=== PATIENT | female | born 1975 | race Caucasian/White ===

== ENCOUNTER 2016-06-24 19:46 | Emergency (ER) | payer MEDICAID ==
[2016-06-24] MEDS ORDERED: NORMAL SALINE 1000 ML 1,000 ML IV PRN (20:24)
--- NOTE | 2016-06-24 20:27 | ER Document Report ---
ED General - General Chief Complaint: Overdose Stated Complaint: POSSIBLE OVERDOSE Time seen by provider: 20:24 Mode of Arrival: Medic Information source: Patient TRAVEL OUTSIDE OF THE [place] IN LAST 30 DAYS: No - HPI Patient complains to provider of: altered mental status, difficult to arouse, possible overdose Onset: Just prior to arrival Onset/Duration: Sudden Quality of pain: No pain Associated symptoms: Nausea, Vomiting Exacerbated by: Denies Relieved by: Denies Similar symptoms previously: No Recently seen / treated by doctor: No Notes: Patient is a 41-year-old female with a history of anxiety, ADHD and hypertension , brought to the emergency room by EMS after she became unresponsive and was breathing at a rate of 4 breaths per minute, friends nearby suspected patient may have overdosed on unknown meds, and patient received Narcan in route which seemed to reverse her symptoms, patient reports that she took her normal medications this evening which include Klonopin, clonidine, Ambien, Adderall, Abilify, she denies taking any other medications or street drugs but does admit to drinking some alcohol throughout the day today, patient reports she has been having some nausea and vomiting over the past few days, denies abdominal pain, denies pain anywhere, denies history of similar symptoms previously, family member at bedside reports that patient was difficult to arouse for approximately 5 minutes but no seizure activity was observed at the time, patient denies any symptoms at time of initial evaluation, reports feeling 100% back to normal - Related Data Allergies/Adverse Reactions: lorazepam [From Ativan] Allergy (Verified 02/05/15 20:40) Past Medical History - General Information source: Patient - Social History Smoking Status: Current Every Day Smoker Frequency of alcohol use: Social Family History: Reviewed & Not Pertinent - Past Medical History Cardiac Medical History: Reports: Hx Hypertension Psychiatric Medical History: Reports: Hx Depression Past Surgical History: Reports: Hx Section - Immunizations Hx Diphtheria, Pertussis, Tetanus Vaccination: Yes - > 5 years Review of Systems - Review of Systems Constitutional: No symptoms reported EENT: No symptoms reported Cardiovascular: No symptoms reported Respiratory: No symptoms reported Gastrointestinal: Nausea, Vomiting Genitourinary: No symptoms reported Female Genitourinary: No symptoms reported Musculoskeletal: No symptoms reported Skin: No symptoms reported Hematologic/Lymphatic: No symptoms reported Neurological/Psychological: No symptoms reported -: Yes All other systems reviewed and negative Physical Exam - Vital signs Interpretation: Normal - General General appearance: Appears well, Alert - HEENT Head: Normocephalic, Atraumatic Eyes: Normal Pupils: PERRL - Respiratory Respiratory status: No respiratory distress Chest status: Nontender Breath sounds: Normal Chest palpation: Normal - Cardiovascular Rhythm: Regular Heart sounds: Normal auscultation Murmur: No - Abdominal Inspection: Normal Distension: No distension Bowel sounds: Normal Tenderness: Nontender Organomegaly: No organomegaly - Back Back: Normal, Nontender - Extremities General upper extremity: Normal inspection, Nontender, Normal color, Normal ROM , Normal temperature General lower extremity: Normal inspection, Nontender, Normal color, Normal ROM , Normal temperature, Normal weight bearing. No: Shanna's sign - Neurological Neuro grossly intact: Yes Cognition: Normal Orientation: AAOx4 [place] Coma Scale Eye Opening: Spontaneous [place] Coma Scale Verbal: Oriented [place] Coma Scale Motor: Obeys Commands [place] Coma Scale Total: 15 Speech: Normal Motor strength normal: LUE, RUE, LLE, RLE Sensory: Normal - Psychological Associated symptoms: Normal affect, Normal mood - Skin Skin Temperature: Warm Skin Moisture: Dry Skin Color: Normal Course - Re-evaluation Re-evalutation: 06/24/16 21:03 Notified by nursing staff that patient may have a low back from the emergency room as she cannot be found, prior to that she was ambulating with a steady gait , she was awake alert and oriented, and had no complaints 06/24/16 21:12 Nursing staff reviewed security tapes showing that patient did in fact eloped from the emergency room, unfortunately there is no evidence of her removing her IV catheter prior to doing this, therefore nursing staff attempted to call patient but was transferred right voicemail, will notify law enforcement to go to patient's house to ensure that she does not still have IV in place or otherwise bring her back to the emergency room Discharge - Discharge Clinical Impression: Nausea and vomiting Qualifiers: Vomiting type: unspecified Vomiting Intractability: non-intractable Qualified Code(s): R11.2 - Nausea with vomiting, unspecified Disposition: ELOPED
--- NOTE | 2016-06-25 09:25 | EKG REPORT ---
SEVERITY:- OTHERWISE NORMAL ECG - SINUS TACHYCARDIA : Confirmed by: Fabiola Randle MD 25-Jun-2016 09:24:19
== END 2016-06-24 20:25 | disposition left against medical advice (07) ==
LOC: ER 19:46
DX: R11.2 Nausea with vomiting, unspecified (principal); R41.82 Altered mental status, unspecified; F41.9 Anxiety disorder, unspecified; F90.9 Attention-deficit hyperactivity disorder, unspecified type; I10 Essential (primary) hypertension; Z79.899 Other long term (current) drug therapy; F17.210 Nicotine dependence, cigarettes, uncomplicated
CPT/HCPCS: 93005; 93010; 99281

== ENCOUNTER 2016-09-02 12:33 | Emergency (ER) | payer MEDICAID ==
--- NOTE | 2016-09-02 12:48 | ER Document Report ---
ED Medical Screen (RME) - General Stated Complaint: MEDICAL CLEARANCE/WITHDRAWAL Notes: Patient here for lab work for medical clearance so that she can be sent to [facility]. Member of [facility] (Nicole [phone]) is present with patient. Patient is complaining of leg cramps and feeling sweaty. Patient admits to alcohol abuse, takes benzos, opiates, and methadone. I have greeted and performed a rapid initial assessment of this patient. A comprehensive ED assessment and evaluation of the patient, analysis of test results and completion of the medical decision making process will be conducted by additional ED providers. TRAVEL OUTSIDE OF THE [place] IN LAST 30 DAYS: No - Related Data Allergies/Adverse Reactions: lorazepam [From Ativan] Allergy (Verified 09/02/16 12:46) Past Medical History - Past Medical History Cardiac Medical History: Reports: Hx Hypertension Psychiatric Medical History: Reports: Hx Depression Past Surgical History: Reports: Hx Section - Immunizations Hx Diphtheria, Pertussis, Tetanus Vaccination: Yes - > 5 years Physical Exam - Cardiovascular Rhythm: Regular Heart sounds: Normal auscultation
[2016-09-02 13:37] LABS: HEMATOCRIT 41.3 % (36.0-47.0); HEMOGLOBIN 14.1 g/dL (12.0-15.5); MEAN CORPUSCULAR HEMOGLOBIN 27.5 pg (27.0-33.4); MEAN CORPUSCULAR HGB CONC 34.1 g/dL (32.0-36.0); MEAN CORPUSCULAR VOLUME 81 fl (80-97); RED BLOOD COUNT 5.13 10^6/uL (3.72-5.28); RED CELL DISTRIBUTION WIDTH 13.7 % (11.5-14.0); WHITE BLOOD COUNT 11.9 10^3/uL (4.0-10.5)
[2016-09-02 13:56] LABS: ALANINE AMINOTRANSFERASE 100 U/L (9-52); ALBUMIN 4.3 g/dL (3.5-5.0); ALCOHOL < 10 mg/dL (NONE DETECTED); ALKALINE PHOSPHATASE 87 U/L (38-126); ANION GAP 13 (5-19); ASPARTATE AMINO TRANSFERASE 53 U/L (14-36); BILIRUBIN,DIRECT 0.2 mg/dL (0.0-0.4); BILIRUBIN,TOTAL 0.4 mg/dL (0.2-1.3); BLOOD UREA NITROGEN 19 mg/dL (7-20); CALCIUM 10.1 mg/dL (8.4-10.2); CARBON DIOXIDE 23 mmol/L (22-30); CHLORIDE 107 mmol/L (98-107); CREATININE RESULT 0.87 mg/dL (0.52-1.25); GLUCOSE 106 mg/dL (75-110); POTASSIUM 4.5 mmol/L (3.6-5.0); SODIUM 143.1 mmol/L (137-145); TOTAL PROTEIN 7.5 g/dL (6.3-8.2)
[2016-09-02 14:00] LABS: APPEARANCE,URINE SLIGHTLY-CLOUDY; BILIRUBIN,URINE NEGATIVE (NEGATIVE); GLUCOSE, URINE NEGATIVE (NEGATIVE); KETONES,URINE NEGATIVE (NEGATIVE); LEUKOCYTE ESTERASE,URINE NEGATIVE (NEGATIVE); NITRITE,URINE NEGATIVE (NEGATIVE); PROTEIN,URINE NEGATIVE (NEGATIVE); URINE SPECIFIC GRAVITY 1.029; UROBILINOGEN,URINE NEGATIVE mg/dL (<2.0)
[2016-09-02 14:11] LABS: BASOPHILS % (MANUAL) 0 % (0-2); EOSINOPHILS % (MANUAL) 1 % (0-6); LYMPHOCYTES % (MANUAL) 24 % (13-45); TOTAL CELLS COUNTED 100
[2016-09-02 14:12] LABS: PLATELET CLUMPS PRESENT; RBC MORPHOLOGY COMMENT NORMO-CYTIC/CHROMIC; TOXIC GRANULATION SLIGHT
[2016-09-02 14:13] LABS: URINE BARBITURATES SCREEN NEGATIVE; URINE METHADONE SCREEN UNCONFIRMED POSITIVE; URINE OPIATES LOW UNCONFIRMED POSITIVE; URINE PHENCYCLIDINE SCREEN NEGATIVE
--- NOTE | 2016-09-02 16:19 | ER Document Report ---
ED Substance Abuse / Acc. OD - General Chief Complaint: Medical Clearance Stated Complaint: MEDICAL CLEARANCE/WITHDRAWAL Mode of Arrival: Ambulatory Information source: Patient Notes: Patient presents with a staff member from [facility] requesting medical clearance so that she can seek placement for detox at [facility]. Patient states that she is wanting to detox from multiple substances that she has been using. Patient states that primarily she abuses Adderall, but will occasionally take Percocet, methadone, shoot up heroin, shoot up crystal meth, and only take Klonopin whenever she doesn't have the other drugs. Patient does state that she occasionally drinks but not daily. Patient reports that her last use of Klonopin was 2 days ago, her last Percocet intake was 2 days ago she typically will try to take 5 tablets a day. Patient reports last taking methadone 3 days ago. Patient last used heroin 1 week ago. Last use of crystal meth was 3 days ago. Patient denies any suicidal or homicidal ideation. Patient presently denies any complaints except for an occasional cramping in her legs. Patient denies any chest pain, shortness of breath, abdominal pain, nausea, vomiting or diarrhea. TRAVEL OUTSIDE OF THE [place] IN LAST 30 DAYS: No - HPI Patient complains to provider of: Substance abuse Quality of pain: Cramping Pain Level: 0 Associated Symptoms: denies: Fever/chills/sweaty, Chest pain/discomfort, Hurts to breathe, Short of breath, Nausea/vomiting, Diarrhea, Bloody stool, Trouble walking, Lightheaded, Rapid pulse Similar symptoms previously: Yes Recently seen / treated by doctor: No - Related Data Allergies/Adverse Reactions: lorazepam [From Ativan] Allergy (Verified 09/02/16 12:46) Past Medical History - General Information source: Patient - Social History Smoking Status: Current Every Day Smoker Frequency of alcohol use: Social Drug Abuse: Prescription drugs Family History: Reviewed & Not Pertinent Patient has suicidal ideation: No Patient has homicidal ideation: No - Past Medical History Cardiac Medical History: Reports: Hx Hypertension Renal/ Medical History: Denies: Hx Peritoneal Dialysis Psychiatric Medical History: Reports: Hx Anxiety, Hx Attention Deficit Hyperactivity Disorder, Hx Depression Past Surgical History: Reports: Hx Section - Immunizations Hx Diphtheria, Pertussis, Tetanus Vaccination: Yes - > 5 years Review of Systems - Review of Systems Constitutional: No symptoms reported. denies: Fever, Recent illness EENT: No symptoms reported Cardiovascular: No symptoms reported. denies: Chest pain, Palpitations, Dizziness Respiratory: No symptoms reported. denies: Cough, Short of breath Gastrointestinal: No symptoms reported. denies: Abdominal pain, Diarrhea, Nausea, Vomiting Genitourinary: No symptoms reported. denies: Dysuria Female Genitourinary: No symptoms reported Musculoskeletal: Other - Occasional leg cramps. denies: Back pain, Joint pain Skin: No symptoms reported. denies: Rash Hematologic/Lymphatic: No symptoms reported Neurological/Psychological: No symptoms reported. denies: Confusion, Dementia, Homicidal ideation, Lost consciousness, Headaches, Suicidal ideation Physical Exam - Vital signs Vitals: Temp Pulse Resp BP Pulse Ox 98.1 F 94 18 143/96 H 98 09/02/16 12:43 09/02/16 12:43 09/02/16 12:43 09/02/16 12:43 09/02/16 12:43 - General General appearance: Appears well, Alert In distress: None - HEENT Head: Normocephalic, Atraumatic Eyes: Normal Conjunctiva: Normal Eyelashes: Normal Pupils: PERRL Nasal: Normal Mouth/Lips: Normal Mucous membranes: Normal Neck: Normal, Supple. No: Lymphadenopathy, Meningismus - Respiratory Respiratory status: No respiratory distress Chest status: Nontender Breath sounds: Normal. No: Rales, Rhonchi, Stridor, Wheezing Chest palpation: Normal - Cardiovascular Rhythm: Regular Heart sounds: S1 appreciated, S2 appreciated Murmur: No - Abdominal Inspection: Normal Tenderness: Nontender - Back Back: Normal, Nontender. No: CVA tenderness - Extremities General upper extremity: Normal inspection, Normal ROM General lower extremity: Normal inspection, Normal ROM - Neurological Neuro grossly intact: Yes Cognition: Normal Orientation: AAOx4 [place] Coma Scale Eye Opening: Spontaneous [place] Coma Scale Verbal: Oriented [place] Coma Scale Motor: Obeys Commands [place] Coma Scale Total: 15 - Psychological Associated symptoms: Normal affect, Normal mood - Skin Skin Temperature: Warm Skin Moisture: Dry Skin Color: Normal Course - Re-evaluation Re-evalutation: 09/02/16 16:[address] Fontaine regarding patient presentation and discharge plan of care 09/02/16 16:24 Patient medically clear after review of patient's diagnostic tests, vital signs as well as physical exam findings. Patient with an [facility] contracts representative and plans to follow up directly for placement at [facility] for detox 09/02/16 At discharge patient's [facility] contracts representative became visibly agitated insisting that patient has an abnormal EKG and that we must do something to fix her EKG so that she can find placement. A staff and daughter states that patient needs to be cleared and had a confirmed that she is not having a stroke or a heart attack at this time. Patient does not presently complain of any symptoms except for occasional leg cramps. Patient without any electrolyte abnormality or correctable cause of her leg cramps.. A staff member was argumentative insisting that patient will need to be admitted so that she can detox from her multiple substances that she is abusing. Patient advised that she does not have any lethal arrhythmia on EKG nor does she have any abnormal rhythm that warrants or could be corrected with any medical treatment at this time. Patient advised that she does not have signs concerning for cardiac ischemia or infarction. Patient advised that she is stable to seek out detox, but this facility does not provide inpatient detox. [facility] contracts representative increasingly becoming argumentative insisting that patient is not medically clear because of her abnormal EKG finding. Patient advised that she may never have a completely normal EKG rhythm, and that the abnormality on her EKG today, may in fact be patient's new baseline EKG rhythm. Dr. Fontaine advised of representatives concerns, agrees with plan to discharge patient. - Vital Signs Vital signs: Temp Pulse Resp BP Pulse Ox 98.2 F 90 18 146/95 H 100 09/02/16 16:54 09/02/16 16:54 09/02/16 12:43 09/02/16 16:54 09/02/16 16:54 - Laboratory Result Diagrams: 09/02/16 13:05 09/02/16 13:05 Laboratory results interpreted by me: 09/02/16 09/02/16 13:05 13:05 WBC 11.9 H Monocytes % (Manual) 1 L AST 53 H ALT 100 H Salicylates < 1.0 L Acetaminophen < 10 L 09/02/16 16:18 Labs- Entire Visit 09/02/16 09/02/16 09/02/16 13:05 13:05 13:05 WBC 11.9 H RBC 5.13 Hgb 14.1 Hct 41.3 MCV 81 MCH 27.5 MCHC 34.1 RDW 13.7 Plt Count 214 Total Counted 100 Seg Neutrophils % Not Reportable Seg Neuts % (Manual) 67 Lymphocytes % Not Reportable Lymphocytes % (Manual) 24 Atypical Lymphs % 7 Monocytes % Not Reportable Monocytes % (Manual) 1 L Eosinophils % Not Reportable Eosinophils % (Manual) 1 Basophils % Not Reportable Basophils % (Manual) 0 Absolute Neutrophils Not Reportable Abs Neuts (Manual) 8.0 Absolute Lymphocytes Not Reportable Abs Lymphs (Manual) 3.7 Absolute Monocytes Not Reportable Abs Monocytes (Manual) 0.1 Absolute Eosinophils Not Reportable Absolute Eos (Manual) 0.1 Absolute Basophils Not Reportable Abs Basophils (Manual) 0.0 Toxic Granulation SLIGHT Clumped Platelets PRESENT Platelet Comment Not Reportable RBC Morph Comment NORMO-CYTIC/CHROMIC Sodium 143.1 Potassium 4.5 Chloride 107 Carbon Dioxide 23 Anion Gap 13 BUN 19 Creatinine 0.87 Est GFR ( Amer) > 60 Est GFR (Non-Af Amer) > 60 Glucose 106 Calcium 10.1 Total Bilirubin 0.4 Direct Bilirubin 0.2 Indirect Bilirubin Not Reportable Neonat Total Bilirubin Not Reportable AST 53 H ALT 100 H Alkaline Phosphatase 87 Total Protein 7.5 Albumin 4.3 Serum HCG, Qual NEGATIVE Urine Color Urine Appearance Urine pH Ur Specific [place] Urine Protein Urine Glucose (UA) Urine Ketones Urine Blood Urine Nitrite Urine Bilirubin Urine Urobilinogen Ur Leukocyte Esterase Urine WBC (Auto) Urine RBC (Auto) Squamous Epi Cells Auto Urine Mucus (Auto) Urine Ascorbic Acid Salicylates < 1.0 L Urine Opiates Screen Urine Methadone Screen Acetaminophen < 10 L Ur Barbiturates Screen Ur Phencyclidine Scrn Ur Amphetamines Screen U Benzodiazepines Scrn Urine Cocaine Screen U Marijuana (THC) Screen Serum Alcohol < 10 09/02/16 09/02/16 13:05 13:05 WBC RBC Hgb Hct MCV MCH MCHC RDW Plt Count Total Counted Seg Neutrophils % Seg Neuts % (Manual) Lymphocytes % Lymphocytes % (Manual) Atypical Lymphs % Monocytes % Monocytes % (Manual) Eosinophils % Eosinophils % (Manual) Basophils % Basophils % (Manual) Absolute Neutrophils Abs Neuts (Manual) Absolute Lymphocytes Abs Lymphs (Manual) Absolute Monocytes Abs Monocytes (Manual) Absolute Eosinophils Absolute Eos (Manual) Absolute Basophils Abs Basophils (Manual) Toxic Granulation Clumped Platelets Platelet Comment RBC Morph Comment Sodium Potassium Chloride Carbon Dioxide Anion Gap BUN Creatinine Est GFR ( Amer) Est GFR (Non-Af Amer) Glucose Calcium Total Bilirubin Direct Bilirubin Indirect Bilirubin Neonat Total Bilirubin AST ALT Alkaline Phosphatase Total Protein Albumin Serum HCG, Qual Urine Color YELLOW Urine Appearance SLIGHTLY-CLOUDY Urine pH 5.0 Ur Specific [place] 1.029 Urine Protein NEGATIVE Urine Glucose (UA) NEGATIVE Urine Ketones NEGATIVE Urine Blood NEGATIVE Urine Nitrite NEGATIVE Urine Bilirubin NEGATIVE Urine Urobilinogen NEGATIVE Ur Leukocyte Esterase NEGATIVE Urine WBC (Auto) 1 Urine RBC (Auto) 0 Squamous Epi Cells Auto 6 Urine Mucus (Auto) RARE Urine Ascorbic Acid NEGATIVE Salicylates Urine Opiates Screen UNCONFIRMED POSITIVE Urine Methadone Screen UNCONFIRMED POSITIVE Acetaminophen Ur Barbiturates Screen NEGATIVE Ur Phencyclidine Scrn NEGATIVE Ur Amphetamines Screen U Benzodiazepines Scrn UNCONFIRMED POSITIVE Urine Cocaine Screen NEGATIVE U Marijuana (THC) Screen NEGATIVE Serum Alcohol 09/02/16 18:31 09/02/16 18:37 - EKG Interpretation by Ms EKG shows normal: Sinus rhythm Rate: Normal Discharge - Discharge Clinical Impression: Substance abuse Condition: Stable Disposition: HOME, SELF-CARE Instructions: Leg Cramps ([facility]) Additional Instructions: Return immediately for any new or worsening symptoms Followup with your primary care provider, call tomorrow to make a followup appointment Follow-up with [facility] for placement at a detox facility Referrals: [facility] [Provider Group] - Follow up as needed [facility] [Provider Group] - Follow up as needed
[2016-09-02 17:48] VITALS: BP 146/95
--- NOTE | 2016-09-02 18:26 | EKG REPORT ---
SEVERITY:- BORDERLINE ECG - SINUS RHYTHM PROBABLE LEFT ATRIAL ABNORMALITY POOR R PROGRESSION ANTERIOR LEADS. : Confirmed by: Barrett Guan MD 02-Sep-2016 18:26:02
== END 2016-09-02 17:00 | disposition home or self-care (01) ==
LOC: ER 12:33
DX: F19.10 Other psychoactive substance abuse, uncomplicated (principal); F17.200 Nicotine dependence, unspecified, uncomplicated; I10 Essential (primary) hypertension
CPT/HCPCS: 36415; 80053; 80307; 81001; 84703; 85025; 93005; 93010; 99283